=== PATIENT | male | born 1980 | race Caucasian/White ===

== ENCOUNTER 2020-08-13 07:51 | Emergency (ER) | payer SELFPAY ==
[~2020-08-13] VITALS: Ht 200.7 cm; Wt 104.0 kg
[2020-08-13] MEDS ORDERED: MORPHINE SULFATE 4 MG/ML CPJ (NOT FOR IM USE) IV STA (08:18)
[2020-08-13 09:14] LABS: BASOPHILS % 0.8 % (0.0-2.0); EOSINOPHILS % 1.3 % (0.0-5.0); HEMATOCRIT. 45.2 % (42.0-52.0); HEMOGLOBIN. 15.6 g/dL (14.0-18.0); LYMPHOCYTES % 20.3 % (20.0-50.0); MEAN CORPUSCULAR VOLUME 90.1 fL (80.0-94.0); MEAN PLATELET VOLUME 8.6 fl (7.4-10.4); MONOCYTES % 8.2 % (2.0-8.0); NEUTROPHILS % 69.4 % (40.0-76.0); PLATELET 371 x1000/uL (130-400); RED BLOOD CELL COUNT 5.02 mill/uL (4.7-6.1); RED CELL DISTRIBUTION WIDTH 13.7 % (11.6-14.6)
[2020-08-13 09:23] LABS: PROTHROMBIN TIME 10.7 sec (9.6-11.0)
[2020-08-13 09:25] LABS: CHLORIDE 103 mEq/L (98-107)
[2020-08-13] MEDS ORDERED: TOPUD PO (10:45)
[2020-08-13] MEDS ORDERED: ONDA4TAB5 PO (10:45)
[2020-08-13 10:53] VITALS: BP 120/87
== END 2020-08-13 11:03 | disposition home or self-care (01) ==
LOC: ER 07:51
DX: R10.9 Unspecified abdominal pain (principal); Z90.81 Acquired absence of spleen
CPT/HCPCS: 36415; 74176; 80053; 83690; 85025; 85610; 93005; 96374; 99285; J2270; Z7610